=== PATIENT | female | born 1955 | race Caucasian/White ===

== ENCOUNTER 2018-01-18 01:21 | Outpatient (CLI) | payer OTHER, SELFPAY ==
--- NOTE | 2018-01-18 15:24 | DI.MAMMO_ITS ---
SYMPTOM/DIAGNOSIS: [facility] SCREENING, Z12.31 BILATERAL SCREENING MAMMOGRAM: Mammograms were interpreted according to the usual protocol including computer analysis with CAD system, tomosynthesis and C view imaging. Comparison is made with exams from 2012 and 2015. The breasts are composed of heterogeneously dense fibroglandular tissue, breast density category C. No suspicious masses or suspicious microcalcifications are seen. The previously noted areas of nodularity in the left breast are not seen on today's exam. IMPRESSION: Category 1-C, negative mammogram. Yearly screening mammography is recommended. [facility] ASSESSMENT OF FINDINGS: Negative. Category 1. Patient will receive a letter notifying them of these results. Bi-RADS category C. The breasts are heterogeneously dense, which may obscure small masses.
== END 2018-01-18 01:41 ==
PROVIDERS: PCP Naturopath; Visit Provider Obstetrics & Gynecology Gynecology
DX: Z12.31 Encounter for screening mammogram for malignant neoplasm of breast (principal)
CPT/HCPCS: 77063; 77067

== ENCOUNTER 2019-07-11 04:15 | Outpatient (CLI) | payer BC, SELFPAY ==
[2019-07-11 15:02] LABS: Abs Immature Grans 0.01 k/cumm (0.0-0.09); Absolute Basophil Count 0.01 k/cumm (0.0-0.2); Absolute Eosinophil Count 0.07 k/cumm (0.0-0.7); Absolute Lymphocyte Count 1.86 k/cumm (1.2-3.4); Absolute Neutrophil Count 3.11 k/cumm (1.2-6.7); Basophils % 0.2; Eosinophils % 1.3; HCT 43.6 % (36.0-46.0); HGB 14.7 g/dL (12.0-15.5); Immature Grans % 0.2 %; Lymphocytes % 33.5; Mean Corp. HGB Concentration 33.7 g/dL (32.0-36.0); Mean Corpuscular Hemoglobin 32.9 pg (27.0-33.0); Mean Corpuscular Volume 97.5 fL (80-95); Mean Platelet Volume 9.7 fL (8.0-11.0); Neutrophils % 55.8; Platelet Count 296 x1000/uL (130-400); RBC 4.47 m/cumm (4.00-5.20); RBC Distribution Width 12.1 % (11.7-14.6); White Blood Cell Count 5.56 k/cumm (4.4-10.8)
[2019-07-11 16:03] LABS: ALT 21 U/L (14-59); AST 17 U/L (15-37); Albumin 3.6 g/dL (3.4-5.0); Alkaline Phosphatase 99 U/L (46-116); Anion Gap 6.7 mmol/L (3-11); BUN 19 mg/dL (7-18); Bilirubin, Total 0.3 mg/dL (0.2-1.0); CO2 28.3 mmol/L (21.0-32.0); CREATININE 0.67 mg/dL (0.55-1.02); Calculated LDL 120 mg/dL (<100); Chloride 107 mmol/L (98-107); Cholesterol 211 mg/dL (<200); Glucose 84 mg/dL (74-106); HDL Cholesterol 53 mg/dL (40-60); Magnesium 1.9 mg/dL (1.8-2.4); Potassium 3.9 mmol/L (3.5-5.1); Sodium 142 mmol/L (136-145); Total Protein 6.5 g/dL (6.4-8.2); Triglyceride 191 mg/dL (<150)
[2019-07-16 12:26] LABS: CA 125 12 U/mL (<30)
== END 2019-07-11 04:35 ==
PROVIDERS: PCP Naturopath; Visit Provider Naturopath
DX: C54.1 Malignant neoplasm of endometrium (principal)
CPT/HCPCS: 36415; 80053; 80061; 86304; 83735; 85025

== ENCOUNTER 2022-04-18 10:29 | Outpatient (REF) | payer MEDICARE, OTHER, MEDICAID, SELFPAY ==
--- NOTE | 2022-04-18 09:30 | PAPFT_PTH ---
PATIENT: Elba Mishra LOC: [facility] U#:[id number] AGE/SX: 66/F ROOM: RE04/18/[address]: Helena Davila NP : 1955 BED: DIS: 04/18/2022 SPEC #: [id number] RECD: 04/18/22 13:07 STATUS: PATRICEShala REEm #: [id number] ADAM: 04/18/22 09:[address]: Lola OTERO,[place] DEPT: [facility] Cytology RECD BY: Gertrude Richmond ENTERED: 04/18/22 13:08 SP TYPE: PAPFT OTHR DR: Unknown,Unknown Tissues: 1 - CX/ENDOCX FOR PAP SMEARS Procedures: PAP THIN PREP/UVM Screening HPV DNA PROBE Comments: [id number]
== END 2022-04-18 10:30 | disposition home or self-care (01) ==
LOC: LBN 10:29
PROVIDERS: Visit Provider Nurse Practitioner Women's Health
DX: Z11.51 Encounter for screening for human papillomavirus (HPV); Z85.42 Personal history of malignant neoplasm of other parts of uterus; Z01.419 Encounter for gynecological examination (general) (routine) without abnormal findings
CPT/HCPCS: 88142; 87624

== ENCOUNTER → 2023-02-14 08:53 | Outpatient (BNVA) | payer MEDICARE, OTHER, SELFPAY | PROVIDERS: Referring Provider Nurse Practitioner Women's Health; Visit Provider Surgery | DX: Z12.11 Encounter for screening for malignant neoplasm of colon (principal) ==

== ENCOUNTER 2023-02-22 11:14 | Day surgery (SDC) | payer MEDICARE, OTHER, SELFPAY ==
[2023-02-22 11:25] VITALS: BP 142/88; PULSE 84; RESP 20; TEMP 36.5; O2SAT 98
[2023-02-22] MEDS: Lactated Ringers 1,000 ML 80 ML IV (11:51)
--- NOTE | 2023-02-22 11:57 | W.ANESPRE ---
General Info Date of Service Date Performed: 02/22/23 Height: 5 ft 8.5 in Weight: 73.5 kg Body Mass Index (BMI): 24.3 Surgical Procedure: Operation Date: 02/22/23 13:50 Proposed Procedure Side Surgeon p Colonoscopy Lyndon Heránndez MD Meds Allergies and Home Medications Allergies Allergy/AdvReac Type Severity Reaction Status Date / Time gluten Allergy KU, stomach Unverified 02/22/23 11:39 Home Medication Medication Instructions Recorded multivitamin (Multi-Day tablet) 1 ea PO DAILY 09/25/13 acetaminophen 325 mg tablet 650 mg PO PRN PRN 02/15/15 (Tylenol) ibuprofen 600 mg tablet 600 mg PO PRN PRN 02/15/15 ascorbic acid (vitamin C) 500 mg 500 mg PO DAILY 02/14/23 capsule bisacodyl 5 mg tablet,delayed 5 mg PO ONCE colonscopy bowel prep 02/14/23 release (Dulcolax (bisacodyl)) #4 tabs cholecalciferol (vitamin D3) 50 50 mcg PO DAILY 02/14/23 mcg (2,000 unit) capsule polyethylene glycol 3350 17 238 g PO ONCE colonoscopy prep 02/14/23 gram/dose oral powder #238 grams Current Visit Medications: Current Medications Generic Name Dose Route Start Last Admin Trade Name Freq PRN Reason Stop Dose Admin Ringer's Solution 1,000 mls @ 80 mls/hr 02/22/23 06:00 02/22/23 11:51 IV 03/23/23 23:59 80 mls/hr INFUSION EDNA Administration IV Miscellaneous Supplies 1 each 02/22/23 06:00 Iv Access IV 03/23/23 23:59 DIRECTED EDNA Sodium Chloride 0 ml 02/22/23 06:00 Normal Saline Flush 10 Ml Syr IV 03/23/23 23:59 PRN PRN Sodium Chloride 0 ml 02/22/23 06:00 Normal Saline 10 Ml Vial IJ 03/23/23 23:59 DIRECTED PRN Sterile Water 0 ml 02/22/23 06:00 Water,Injection,Sterile 10 Ml Vial IJ 03/23/23 23:59 DIRECTED PRN PFSH Active Problems Active Problems: 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 No additional treatment. Patient followed at [place], [place]. Surgical History Surgical History History of robot-assisted laparoscopic hysterectomy 02/12/2015. BSO, bilateral salpingectomy, lymph node biopsy omental biopsy. 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 Tobacco Smoking/Tobacco Use Status: Never Second hand exposure: No Alcohol Alcohol Intake: current Alcohol intake frequency: a few times a week Alcohol type: wine Substance Use Substance use: Never Substance use type: does not use Prental History History 4 Para Hx # Term Pregnancies 2 Multiple births Hx # Pregnancies Ectopic pregnancies AB induced Hx Number of Living Children AB spontaneous Vital Signs and Lab Results Vital Signs Most Recent Vital Signs in EMR: Most Recent Vital Signs Temp Pulse Resp BP Pulse Ox 36.5 C 84 20 142/88 H 98 02/22/23 11:25 02/22/23 11:25 02/22/23 11:25 02/22/23 11:25 02/22/23 11:25 Lab Results Blood Type / Crossmatch: No Data to Display Complete Blood Count: No Data to Display Complete Metabolic Panel: No Data to Display Liver Function Panel: No Data to Display Coagulation Panel: No Data to Display Cardiac Panel: No Data to Display Arterial Blood Gas: No Data to Display Venous Blood Gas: No Data to Display Pancreas Panel: No Data to Display Thyroid Panel: No Data to Display Infectious Disease: No Data to Display Blood Cultures: No Data to Display Toxicology Panel: No Data to Display Anesthesia Assessment and Plan Anesthesia History Personal History: No History of Anesthesia Complications Family History: No Family History of Anesthesia Complications Exercise Tolerance Exercise Tolerance: Metabolic Equivalents>4 Pertinent Negatives Pertinent Negatives: No Symptoms of GERD, No Major Cardiovascular Symptoms or Complaints and No Major Pulmonary Symptoms or Complaints Cardiac & Pulmonary Exam Cardiac Exam: Normal S1/S2 Heart Sounds Pulmonary Exam: Clear Bilateral Breath Sounds Implantable Cardiac Device Does patient have a Pacemaker or an ICD?: No Airway Exam Known Difficult Airway: No Mallampati Class: 1 Mouth Opening: Normal (> 3cm) Thyromental Distance: Greater than 3 cm Neck Range of Motion: Full ROM Neck Circumference: Normal Teeth Condition: Normal Dentition ASA Classification ASA Score: ASA 2 Emergency Case?: No NPO Status NPO Status: NPO Clears >2 hours, Solids >8 hours Anesthesia Plan Resuscitation Status: Full Code Anesthesia Technique: General Anesthesia Airway Planned: Natural Airway Monitors Used: Standard Monitors
[2023-02-22 11:59] VITALS: BMI 24.3
--- NOTE | 2023-02-22 13:04 | BOWEL_PTH ---
PATIENT: Elba Mishra LOC: [facility] U#:[id number] AGE/SX: 67/F ROOM: RE02/22/[address]: Lyndon Hernández : 1955 BED: DIS: 02/22/2023 SPEC #: [id number] RECD: 02/22/23 13:17 STATUS: MARII REQ #: [id number] ADAM: 02/22/23 13:[address]: Lyndon Hernández DEPT: Surgical Specimen RECD BY: Gertrude Richmond ENTERED: 02/22/23 13:17 SP TYPE: Bowel OTHR DR: None Tissues: 1 - BIOPSY BOWEL Procedures: GROSS AND MICRO LEVEL 4 Comments: [id number]
--- NOTE | 2023-02-22 13:10 | COLE_ITS ---
Date of service: 02/22/23 Time of Service: 13:10 Colonoscopy Report Procedure Description: PROCEDURES PERFORMED: 1. Colonoscopy with cold forceps polypectomy PREOPERATIVE DIAGNOSIS: Surveillance colonoscopy, Dillon syndrome POSTOPERATIVE DIAGNOSIS: Normal colon, hyperplastic rectal polyp SURGEON: Sol Hernández MD INDICATION FOR PROCEDURE: The patient is a 67-year-old woman with a history of Dillon syndrome but no family history of colon cancer. She is due for surveilla nce. She has no symptoms. FINDINGS: Healthy, normal?appearing colon. No polyps. No tumors. No inflammation. In the rectum, an isolated tiny, flat polyp that looks hyperplastic in appearance was removed with cold forceps technique to confirm. SURVEILLANCE interval/FOLLOW-UP: Colorectal Society guidelines for Dillon syndrome recommend surveillance colonoscopy every 1-2 years. SPECIMENS: Hyperplastic rectal polyp EBL: Minimal COMPLICATIONS: None QUALITY of prep: Excellent Procedure in detail: The patient gave written consent and was in agreement with the indications, the potential risks as well as the benefits of the procedure. They were taken to the endoscopy suite and laid in the left lateral decubitus position. A timeout was performed and anesthesia was administered which was tolerated well. I started the procedure. Digital rectal and visual examination was performed and grossly within normal limits. A well-lubricated flexible colonoscope was then introduced and passed without any notable difficulty all the way to the cecum identified by the ileocecal valve and the appendiceal orifice. The scope was then slowly withdrawn with the above-noted findings. The patient tolerated the procedure well and was taken to the PACU in hemodynamically stable condition.
[2023-02-22 13:11] VITALS: BP 113/79; PULSE 80; RESP 16; TEMP 36.5; O2SAT 97
--- NOTE | 2023-02-22 13:13 | W.PM.DSUDISC ---
Date of service: 02/22/23 Time of Service: 13:13 Discharge Plan Disposition Patient Disposition: Home Condition: Good Discharge Details Attending Provider: Lyndon Hernández Primary Care Provider: None,None Home Meds and New Rx's Prescriptions: No Action ascorbic acid (vitamin C) 500 mg capsule 500 mg PO DAILY cholecalciferol (vitamin D3) 50 mcg (2,000 unit) capsule 50 mcg PO DAILY polyethylene glycol 3350 17 gram/dose powder 238 g PO ONCE Qty: 238 0RF Rx Instructions: take per colonoscopy instructions bisacodyl [Dulcolax (bisacodyl)] 5 mg tablet,delayed release (DR/EC) 5 mg PO ONCE Qty: 4 0RF Rx Instructions: take per colonoscopy instructions multivitamin [Multi-Day] 1 EACH tablet 1 ea PO DAILY acetaminophen [Tylenol] 325 MG tablet 650 mg PO PRN PRN ibuprofen 600 MG tablet 600 mg PO PRN PRN Discharge Instructions Additional Instructions: FINDINGS: Nothing of concern was found. A tiny benign?appearing rectal polyp was removed as a formality, but this does not affect any of your risk and is nothing to be concerned about. Everything looks healthy. No evidence of cancer. As we discussed at the bedside before the procedure, it is recommended that you do a colonoscopy every 1 to 2 years because of your diagnosis of Dillon syndrome. Activity:: Activity as Tolerated Diet:: As Tolerated Discharge Orders Discharge Orders: Discharge Order (Routine); Ordered 02/22/23 Ordered By: Lyndon Hernández
[2023-02-22 13:40] VITALS: BP 147/83; PULSE 66; RESP 16; TEMP 36.7; O2SAT 99
--- NOTE | 2023-02-22 14:55 | W.ANESPOSTOP ---
Postoperative Evaluation Date, Time and Location Date Performed: 02/22/23 Time Performed: 13:20 Patient Location: Day Surgery Unit Vital Signs Most Recent Imported Vital Signs: Most Recent Vital Signs Temp Pulse Resp BP Pulse Ox 36.7 C 66 16 147/83 H 99 02/22/23 13:40 02/22/23 13:40 02/22/23 13:40 02/22/23 13:40 02/22/23 13:40 Pain Score Most Recent Pain Score: Most Recent Pain Score Pain Level 0 02/22/23 13:40 Assessment Mental Status: Awake (Alert & Oriented to Patient Baseline) Airway and Respiratory Function: Patent airway with normal (patient baseline) respiratory exam Cardiovascular Function: Hemodynamically Stable Hydration Status: Adequately Hydrated Nausea & Vomiting: No Nausea or Vomiting Pain: Pt. Denies Any Pain Peripheral Nerve Block: Patient did not receive a nerve block
== END 2023-02-22 13:56 | disposition home or self-care (01) ==
PROVIDERS: Visit Provider Student in an Organized Health Care Education/Training Program
PROC: 0DJD8ZZ Inspection of Lower Intestinal Tract, Via Natural or Artificial Opening Endoscopic (ICD-10-PCS; CPT 45378; principal; 2023-02-22 13:45)
DX: Z12.11 Encounter for screening for malignant neoplasm of colon (principal); K63.5 Polyp of colon; Z15.09 Genetic susceptibility to other malignant neoplasm
CPT/HCPCS: 45380; 123; 88305; 00123; J2704